=== PATIENT | male | born 1980 | race Caucasian/White ===

== ENCOUNTER 2017-03-11 19:32 | Inpatient (IN) | payer OTHER ==
[~2017-03-11] VITALS: Ht 167.6 cm; Wt 74.0 kg
[2017-03-11] MEDS ORDERED: MELOPOW XX (19:45)
[2017-03-11 21:45] LABS: MEAN CORPUSCULAR HEMOGLOBIN 31.9 pg (27.0-33.0); MEAN CORPUSCULAR HGB CONC 35.7 g/dl (32.0-36.5); MEAN CORPUSCULAR VOLUME 89.4 fl (80.0-96.0); WHITE BLOOD COUNT 11.4 K/mm3 (4.0-10.0)
[2017-03-11 22:05] LABS: METHADONE URINE NEGATIVE (NEGATIVE)
[2017-03-11 22:29] LABS: ALBUMIN 4.1 GM/DL (3.2-5.2); ALBUMIN/GLOBULIN RATIO 1.17 (1.00-1.93); ALKALINE PHOSPHATASE 130 U/L (45-117); ALT/SGPT 22 U/L (12-78); ANION GAP 10 MEQ/L (8-16); AST/SGOT 15 U/L (15-37); BILIRUBIN,DIRECT 0.1 MG/DL (0.0-0.2); BILIRUBIN,TOTAL 0.5 MG/DL (0.2-1.0); BLOOD UREA NITROGEN 10 MG/DL (7-18); CALCIUM LEVEL 8.9 MG/DL (8.5-10.1); CARBON DIOXIDE LEVEL 24 MEQ/L (21-32); CHLORIDE LEVEL 105 MEQ/L (98-107); CREATININE FOR GFR 0.78 MG/DL (0.70-1.30); GLOMERULAR FILTRATION RATE > 60.0 (>60); GLUCOSE, FASTING 89 MG/DL (70-105); POTASSIUM SERUM 3.7 MEQ/L (3.5-5.1); SODIUM LEVEL 139 MEQ/L (136-145); TOTAL PROTEIN 7.6 GM/DL (6.4-8.2)
[2017-03-12] MEDS ORDERED: NICOTINE 21MG/24HR 1 EA TRANSDERMAL TD ONE (00:15)
[2017-03-12] MEDS ORDERED: ACETAMINOPHEN TAB 650MG DOSE (2X325MG) PO PRN (00:30)
[2017-03-12] MEDS ORDERED: MOM 30ML SUSPENSION UDC PO PRN (00:30)
[2017-03-12] MEDS ORDERED: MAALOX 30 ML SUSP *UDC PO PRN (00:30)
[2017-03-12] MEDS ORDERED: MELO15TA4 PO (00:42)
[2017-03-12] MEDS ORDERED: TYLE500T78 PO (00:42)
[2017-03-12 01:28] VITALS: BP 120/86
[2017-03-12] MEDS: NICOTINE 21MG/24HR 1 EA TRANSDERMAL TD SCH (09:44)
[2017-03-12] MEDS: LORazepam 1 MG TAB PO PRN ×2 (09:44→22:09)
[2017-03-12] MEDS: ESCITALOPRAM OXALATE 10 MG TAB (LEXAPRO) PO SCH (09:45)
--- NOTE | 2017-03-12 10:00 | HPEPDOC ---
Medical History and Physical Date of Admission Mar 12, 2017 at 00:23 History and Physical PCP: [facility] ATTENDING: Dr. Odell Dailey HPI: 36yoM admitted to [facility] for Severe MDD, being medically examined today. Patient complaining of low back pain. He states this radiates into his left leg. Sometimes systolics feels weak when he is running or going downstairs. He has numbness and tingling in his left foot with running. Denies bowel or bladder incontinence. He denies prior injury. Denies prior imaging studies. States Myrna is not controlling his pain. He requests to see pain management. Denies any fevers, chills, weakness, fatigue, CONDE, CP, SOB, cough, palpitations, abdominal pain, N/V/D or changes in bowel or bladder habits. PMHx: Chronic low back pain Anxiety Depression PSHX: Septoplasty Reconstructive nasal surgery Lymph node removed neck, benign Vasectomy SOCHX: Resides in: [place], from [place] Marital Status: Kids: 2, 3 stepchildren Employment: Active duty Tobacco use: One pack per day ETOH: Denies Illicit Drugs: Denies IV Drug Use: Denies Tattoos done unprofessionally: 4 FAMHX: Mother: Alive, well Father: Alive, [place], CABG, renal failure status post renal transplant, transplant failure, hemodialysis. Siblings: One sister Alive, well Children: Alive, well Unexpected deaths due to medical reasons: None. ROS: As noted in HPI, otherwise 11pt ROS of systems reviewed and unremarkable. PE: GEN: 36 yo M, appears stated age. Well-nourished, well developed. No acute distress. Alert and oriented x 3. Flat affect, reluctant to answer questions. HEENT: Normocephalic, atraumatic. Pupils are equal, round, and reactive to light. Extraocular movements are intact. No nystagmus appreciated. Sclera are nonicteric. Conjunctiva without injection. Nose midline. Nasal turbinates without bogginess. EACs both patent BL. TMs both visualized and marcano with good cone of light, no bulging or erythema. No facial asymmetry. Moist mucous membranes. Dentition fair. Pharynx pink and moist, no cobblestoning. Neck supple , trachea midline. No lymphadenopathy or thyromegaly appreciated. CHEST: Regular rate and rhythm, +S1, +S2 LUNGS: Clear to auscultation bilaterally. No wheezes, rales, or rhonchi. Breathing appears symmetric and easy. Patient is speaking in full sentences. No accessory muscle use. ABD: Round, soft, non-tender, non-distended. +Bowel sounds throughout. No rebound or guarding. No costovertebral angle tenderness. EXT: Pulses 2+ bilaterally dorsalis pedis and radial. No lower extremity edema appreciated. Mild tenderness with palpation over the lumbar area. No paraspinal muscle tenderness. Normal strength in lower extremities. SKIN: [place], dry, warm. Capillary refill <2sec. No rashes. NEURO: Alert and oriented x 3. Cranial nerves III-XII are intact. No focal deficits appreciated. EKG: Pending. A&P: 36yoM admitted to [facility] for Severe MDD 1. Psych. Plan per Psychiatry. Obtain baseline EKG to assure the safety of psychiatric medications as they can prolong the QT interval. 2. Nicotine dependence. Patch available. 3. Chronic low back pain. Continue Mobic 15 mg daily. Check x-ray of lumbosacral spine. Request pain management opinion. 4. Follow up with PCP on discharge. 5. History of tattoo done unprofessionally. Patient denies HIV/hepatitis screening. Patient states he had screening in early 2016, reports it was negative. Vital Signs Vital Signs Date Time Temp Pulse Resp B/P (MAP) Pulse Ox O2 Delivery O2 Flow Rate FiO2 03/12/17 01:28 98.1 86 16 120/86 (97) 03/12/17 00:59 99 Room Air Laboratory Data Labs 24H Laboratory Tests 2 03/11/17 21:29: Anion Gap 10, Glomerular Filtration Rate > 60.0, Calcium Level 8.9, Aspartate Amino Transf (AST/SGOT) 15, Alanine Aminotransferase (ALT/SGPT) 22, Alkaline Phosphatase 130H, Total Bilirubin 0.5, Direct Bilirubin 0.1, Total Protein 7.6, Albumin 4.1, Albumin/Globulin Ratio 1.17, Thyroid Stimulating Hormone (TSH) 0.500, Salicylates Level 4.9L, Urine Amphetamines Screen NEGATIVE, Urine Benzodiazepines Screen NEGATIVE, Urine Opiates Screen NEGATIVE, Urine Methadone Screen NEGATIVE, Acetaminophen Level < 2.0L, Urine Barbiturates Screen NEGATIVE , Urine Phencyclidine Screen NEGATIVE, Urine Cocaine Metabolite Screen NEGATIVE , Urine Cannabinoids Screen NEGATIVE, Ethyl Alcohol Level < 0.003 CBC/BMP Laboratory Tests 03/11/17 21:29 Red Blood Count 4.61, Mean Corpuscular Volume 89.4, Mean Corpuscular Hemoglobin 31.9, Mean Corpuscular Hemoglobin Concent 35.7, Red Cell Distribution Width 13.0 Home Medications Scheduled Meloxicam (Meloxicam) 15 Mg Tab, 15 MG PO QPM TAKES AT DINNERTIME Scheduled PRN Acetaminophen (Tylenol Extra Strength) 500 Mg Tab, 1,500 MG PO BID PRN for PAIN Allergies Coded Allergies: No Known Allergies (Unverified , 03/11/17) Valorie Lynch Mar 12, 2017 10:00
--- NOTE | 2017-03-12 11:29 | REP ---
LUMBOSACRAL SPINE: Five views of the lumbosacral spine are performed. There is no compression fracture. There is no spondylolysis or spondylolisthesis. There is mild disc space narrowing at L5-S1 with sclerosis at the facets at that level. Posterior elements are intact. IMPRESSION: Mild degenerative changes L5-S1. Signed by Benitez Strange MD 03/12/2017 07:11 P
--- NOTE | 2017-03-12 17:23 | CR ---
DATE OF CONSULTATION: 03/12/2017 REFERRING PROVIDER: ROYCE Parsons CHIEF COMPLAINT: 1. Low back pain. 2. Left leg pain. 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 Reports a one year history of low back pain. Denies precipitating events. Past two weeks he has noticed left leg and foot numbness and burning with running. Today he is having no pain issues. He has not had left leg issues since he has been here. Again, the left leg issues are only with running. Denies recent fever, illness or weight loss. Denies bowel or bladder incontinence. PAST MEDICAL HISTORY: Chronic low back pain, anxiety, depression. PAST SURGICAL HISTORY: Septoplasty. Reconstructive nasal surgery. Lymph node removed neck benign. Vasectomy. SOCIAL HISTORY: Resides in [place]. New to the area times 9 months. Lives with his . Has two children and three step children. Denies alcohol use or illicit drug use. Smokes one pack of cigarettes per day. FAMILY HISTORY: Mother alive, well. Father alive, [place], Coronary artery bypass graft, renal failure status post renal transplant, transplant failure, hemodialysis. Siblings one sister alive and well. Children alive and well. REVIEW OF SYSTEMS: As noted in history of present illness, otherwise 11 point review of systems reviewed and unremarkable. PHYSICAL EXAMINATION: Awake, alert, pleasant, cooperative. Good eye contact. Vital signs: 98.1, 86, 16. Blood pressure 120/86, Oxygen sat is 99% on room air. Cardiac: S1, S2, normal rate and rhythm. Respiratory: Lung sounds are clear. Respirations non labored. Neuromuscular: Muscle strength and tone of the upper and lower extremities 5/5. Inspection of spine: Nontender with palpation. Non-tender specifically over sacroiliac joint region. Negative Akash's testing bilateral lower extremities. Deep tendon reflex 2+/4. Normal sensation to light touch bilateral lower extremities. Range of joint motion of the spine is full. Reports slight increase in pain with extension of the spine. DIAGNOSTIC DATA: X-ray LS spine: This is showing mild degenerative changes L5-S1 with facet arthropathy noted at that level. ASSESSMENT: Low back pain, rule out lumbar radiculopathy. PLAN: I would recommend MRI of the LS spine. Recommend use of Tylenol 500 mg two tablets as needed for reports of severe pain. Recommend trial of ibuprofen 600 mg three times a day. Recommend trial of Juan J Hendrickson to the LS spine and lumbar paraspinal region twice a day. Thank you for allowing us to participate in the care of your patient. Should you have any questions or concerns, please do not hesitate to contact us. cc: Valorie Lynch PA-C
[2017-03-12 18:00] VITALS: BP 124/82
--- NOTE | 2017-03-12 20:57 | ECGEPIP ---
Stationary ECG Study [facility] Test Date: 2017-03-12 Pat Name: SANTI CRUZ Department: Room: [place] [address] Gender: M Fleet Administrative Assistant: ANNY : 1980 Requested By: Valorie Lynch Order Number: [id number] Reading MD: Odell Cook Measurements Intervals [place] Rate: 74 P: 3 VA: 179 QRS: -14 QRSD: 95 T: 16 QT: 390 QTc: 433 Interpretive Statements SINUS RHYTHM No prior ECG available for comparison at the time of interpretation. Electronically Signed On 03-12-2017 20:57:05 EDT by Odell Cook
--- NOTE | 2017-03-12 21:30 | MHHPEPDOC ---
[facility] History & Physical History and Physical DATE OF ADMISSION: Mar 12, 2017 at 00:23 LEGAL STATUS AT ADMISSION: 9.39 CHIEF COMPLAINT: Patient was brought by his RENEE to the ER for having suicidal ideation secondary to marital and legal problems. HISTORY OF THE PRESENT ILLNESS: Patient is a 36-year-old male, who was brought to the Emergency room after a series of events that precipitated a severe depressive reaction and suicidal thoughts. The patient has been watching child pornography and he was investigated by the and [facility] [place] [facility] because they searched all the electronics in his house. Then,when he went back home, he found out from his with whom he had a conversation about this issue end she told him she is not sure if she wants to continue living with him. The patient is facing several legal issues and a possible separation from his . PSYCHIATRIC REVIEW OF SYSTEMS: Affective: Depressed, hopeless, helpless, suicidal ideation. Anxiety: Very high. Trauma: Denies history of childhood abuse/trauma and although he has been deployed to [place], he denies trauma symptoms although one of his peers was killed and this had a big impact on him. Reports his father was not abusive to him but was abusive to his mother and that is why they got . Psychosis: Denies . Personally: Needs further assessment. PAST PSYCHIATRIC HISTORY: Prior Psychiatric Disorder: States that he has felt depressed all his life and that he has taken antidepressants but he stopped taking them because he felt they were not helping him.. Outpatient Treatment: Not recent. Suicidal/Self injurious: Has positive suicidal ideation. Has not attempted suicide before. Psychotropic Medication History: Has taken medication for depression. ALLERGIES: Please see below. FAMILY PSYCHIATRIC HISTORY: Denies. SOCIAL HISTORY: Early Relations/development: He says he grew up with his mother because she split with his father from whom he grew apart.He says he has established contact with his father but he has felt closer to his mother and his mothers family. His mother remarried and he has had a relationship with his stepfather since his childhood but he claims is a difficult relationship because his stepfather was emotionally damaged because he was in [place] and this, has affected his mood and the way he relates to others. Sibling order: One half brother, one sister and two stepbrothers. His sister is full blood, his half brother is from his biological father and his stepmother and his stepbrothers are his stepfathers sons with another person. He is in the middle of the line. Paternal relationships: Mentioned in Early Relations. Please see above. Education: HS Diploma Occupational: Active duty, . Ben Legal: Currently facing legal problems Martial: Facing marital problems secondary to the fact that his has got to know, recently, that he watches child pornography. Has two failed marriages before this one. He got once and the marriage ended because she cheated n him and he cheated on her. The second time, the same thing happened, but this time was with a fianc. He got two children, one with each of these women. His first lost custody of their child and now, this child lives with his ex fiance, who is the mother of his second child. He doesnt have children with current , but she has children, three. Of the three children, two live with them and one doesnt. Economic: Finanacial problems. Supports: His , feels supported by his mother. Abuse/trauma: Denies SUBSTANCE ABUSE HISTORY: He states that after he got form his first and broke up with his fiance, being at [place], [place], he was happy and he used cocaine, alcohol and other drugs, he used to democrat a lot, be around liquor, women and drinking buddies. PAST MEDICAL/SURGICAL HISTORY: 1. H/O Vasectomy 2. H/O Septoplasty 3.H/O Reconstructive Nasal surgery 4. H/O neck lymph node removal (benign) VITAL SIGNS: Stable MENTAL STATUS EXAMINATION: General appearance: Patient is a 36-year old male, who is alert, cooperative, with poor eye contact, dressed in hospital clothes. Looks very sad Speech: Normal. Thought processes: Intact. Thought content: About the legal problems that he is facing, he could end up in snf, being kicked out of the army, could be abandoned by his . Abstract reasoning and computation: Fair Description of associations: Not loose Description of abnormal or psychotic thoughts: Not presents. Judgment: Poor Insight: Poor Orientation: Oriented x 3 Recent and remote memory: Intact Attention span and concentration: Fair Fund of knowledge: Adequate. Mood: "Worried and very depressed" Affect: Depressed, sad DIAGNOSES: 1. Reactive Depression 2. 3. ASSESSMENT: PROBLEM LIST: 1. Depression 2. Suicidal Ideation 3. Anxiety INITIAL TREATMENT PLAN: 1. Patient was admitted on a 9.39 2. Complete history was obtained. 3. With patients permission, family will be contacted and database will be expanded. 4. Patients medication regimen will be reviewed and changed accordingly. 5. Patient will be provided with protected environment. 6. Patient will be treated with individual, group, and milieu therapies. 7. Patient will receive supportive psych-education. 8. Discharge planning will commence immediately. 9. Outpatient follow-up treatment will be strongly recommended. 10. The initial treatment plan will focus initially on: * Depression. * Risk for suicide. * Substance abuse. ESTIMATED LENGTH OF STAY: 7-10 DAYS. TIME SPENT COUNSELING AND COORDINATING INITIAL CARE: 50 minutes. Laboratory Data 24H Labs Laboratory Tests 2 03/11/17 21:29: Anion Gap 10, Glomerular Filtration Rate > 60.0, Calcium Level 8.9, Aspartate Amino Transf (AST/SGOT) 15, Alanine Aminotransferase (ALT/SGPT) 22, Alkaline Phosphatase 130H, Total Bilirubin 0.5, Direct Bilirubin 0.1, Total Protein 7.6, Albumin 4.1, Albumin/Globulin Ratio 1.17, Thyroid Stimulating Hormone (TSH) 0.500, Salicylates Level 4.9L, Urine Amphetamines Screen NEGATIVE, Urine Benzodiazepines Screen NEGATIVE, Urine Opiates Screen NEGATIVE, Urine Methadone Screen NEGATIVE, Acetaminophen Level < 2.0L, Urine Barbiturates Screen NEGATIVE , Urine Phencyclidine Screen NEGATIVE, Urine Cocaine Metabolite Screen NEGATIVE , Urine Cannabinoids Screen NEGATIVE, Ethyl Alcohol Level < 0.003 CBC/BMP Laboratory Tests 03/11/17 21:29 Red Blood Count 4.61, Mean Corpuscular Volume 89.4, Mean Corpuscular Hemoglobin 31.9, Mean Corpuscular Hemoglobin Concent 35.7, Red Cell Distribution Width 13.0 Medications Scheduled Meloxicam (Meloxicam) 15 Mg Tab, 15 MG PO QPM, (Reported) TAKES AT DINNERTIME Scheduled PRN Acetaminophen (Tylenol Extra Strength) 500 Mg Tab, 1,500 MG PO BID PRN for PAIN, (Reported) Allergies Coded Allergies: No Known Allergies (Unverified , 03/11/17) MARIETTA GOLDBERG MD Mar 12, 2017 21:30
[2017-03-12] MEDS: MELOXICAM (MOBIC) 7.5 MG TAB PO SCH (22:09)
[2017-03-12] MEDS: traZODone 50 MG TAB PO PRN (22:09)
[2017-03-13 06:00] VITALS: BP 138/78
[2017-03-13] MEDS: ESCITALOPRAM OXALATE 10 MG TAB (LEXAPRO) PO SCH (08:56)
[2017-03-13] MEDS: NICOTINE 21MG/24HR 1 EA TRANSDERMAL TD SCH (08:56)
[2017-03-13] MEDS: ANALGESIC BALM CRM 120 GM TOP SCH ×2 (09:37→21:00)
--- NOTE | 2017-03-13 10:04 | REP ---
MR LUMBAR SPINE WITHOUT CONTRAST: HISTORY: Back pain. Decreased signal intensity on T2-weighted images is present in the L4-5 and L5-S1 intervertebral discs. The discs are decreased in height. These findings are consistent with disc degeneration. There is no disc bulge or herniation at the L1-2 level. The L1 nerves exit the neural foramina without compression. A diffuse disc bulge is present at the L2-3 level. There is minimal compression of the thecal sac. The L2 nerves exit the neural foramina without compression. A diffuse disc bulge is present at the L3-4 level. There is minimal compression of the thecal sac. The L3 nerves exit the neural foramina without compression. A diffuse disc bulge is present at the L4-5 level. There is mild compression of the thecal sac. There is hypertrophy of the posterior articulating facets. The L4 nerves exit the neural foramina without compression. A diffuse disc bulge and small right paracentral and intraforaminal disc protrusion are present at the L5-L1 level. There is minimal compression of the thecal sac and right S1 nerve as it exits the thecal sac. The left S1 nerve is normal. There is compression of the left L5 nerve in the neural foramen. The right L5 nerve exits the neural foramen without compression. The conus medullaris is normal in appearance terminating at the level of the L1-2 intervertebral disc . Normal signal intensity is present in the lumbar vertebral bodies. IMPRESSION: 1. Diffuse disc bulges at the L2-3 and L3-4 levels with minimal thecal sac compression. 2. Diffuse disc bulge at the L4-5 level with mild thecal sac compression. 3. Diffuse disc bulge and small right paracentral and intraforaminal disc protrusion at the L5-S1 level with minimal compression of the thecal sac and right S1 nerve as it exits the thecal sac. There is compression of the left L5 nerve in the neural foramen. Signed by Giovani Parada MD 03/13/2017 10:14 A
[2017-03-13] MEDS: LORazepam 1 MG TAB PO PRN (14:21)
[2017-03-13 18:00] VITALS: BP 127/76
[2017-03-13] MEDS: MELOXICAM (MOBIC) 7.5 MG TAB PO SCH (21:42)
[2017-03-13] MEDS: traZODone 50 MG TAB PO PRN (21:42)
--- NOTE | 2017-03-13 22:04 | IPN ---
DATE: 03/13/2017 Evaluated a 36-year-old male who was admitted to the inpatient mental health unit due to the fact that he had suicidal ideation and an extreme reactive depression because he is about to lose everything that he has achieved in his life, his career, his marriage and he is facing possible charges and possible imprisonment due to the fact that it was found out that he watched child cpornography. He was kept at the [facility] for three days while they searched at his house and they took all the electronics to investigate him. When he got out of the [employer], he found out, when he spoke to his , who already knew what was going on, and his told him that she is not sure if she wants to keep on going and sharing her life with him due to all these events. The patient was initiated on Lexapro 20 mg by mouth daily yesterday, and Ativan 1 mg by mouth every eight hours as needed and 1 mg three times a day as needed for anxiety or agitation. The patient was evaluated today, and he was seen less anxious, slightly less depressed than yesterday but he continues to be depressed, hopeless, helpless, with feelings of worthlessness and guilt-remorse. The patient's speech is normal , is not circumstantial and not tangential. His thought process is intact. His thought content is redundant around financial problems that he has had all his life, how difficult it is to support a family with only 5000 dollars because he has to pay child support for his two other children who live in [place] with his ex-fiance, about the current events, about the possibility of losing his entire life, his career, his marriage, his family support and respect, and the [place] [facility] [place] [facility] because of [facility]. Abnormal thoughts or psychotic thoughts: He denies suicidal ideation, denied homicidal ideation, denied auditory or visual hallucinations, denied obsessions, compulsions, but admitted to having watched child pornography for approximately one year, although he denied having had sexual relationships with a child and denied forcing a child to have sex with him. His memory recent and remote is intact, his attention and concentration are fair. His insight, judgment, impulse control are very poor. The patient did not foresee the consequences of his acts, he says that he really did not consider all what could happen to him if somebody discovered that he was watching child pornography, which just shows that his frontal lobe has not been working really well in controlling his impulses. The patient has high anxiety levels and he stated that he does not know whats going to happen with his life. He is not sure if he will commit suicide once he is out of the unit and on his own. He consider his life would not be worth living if he loses everything, the most ilya thing, his family. The patient will be started on lithium. This is the only medication that prevents suicide and at this point, the patient is at extremely high risk for suicide and he will need to be monitored very closely but the likelihood of a suicide continues to be very high even on medications, because as he has stated, he had lost everything he had. Will followup. IVANNA
[2017-03-14 06:03] VITALS: BP 125/73
[2017-03-14] MEDS: ANALGESIC BALM CRM 120 GM TOP SCH ×2 (09:00→20:59)
[2017-03-14] MEDS: NICOTINE 21MG/24HR 1 EA TRANSDERMAL TD SCH (09:22)
[2017-03-14] MEDS: ESCITALOPRAM OXALATE 10 MG TAB (LEXAPRO) PO SCH (09:23)
[2017-03-14 18:01] VITALS: BP 115/74
[2017-03-14] MEDS: MELOXICAM (MOBIC) 7.5 MG TAB PO SCH (20:59)
[2017-03-14] MEDS: LITHIUM CARBONATE 300 MG CAP PO SCH (20:59)
[2017-03-14] MEDS: LORazepam 1 MG TAB PO PRN (20:59)
--- NOTE | 2017-03-15 01:48 | IPN ---
DATE OF SERVICE: 03/14/2017 The patient states that he is still feeling pretty depressed. He says his mood is 7/10 with the closer to 10 as the most depressed. He says he is still having some fleeting suicidal ideations, but he is able to contract for safety. He did sleep well with the trazodone. MENTAL STATUS EXAMINATION: This patient is alert and oriented times three, pleasant and cooperative, verbally spontaneous. Psychomotor activity is decreased. No formal thought disorder noted. Mood is depressed. Affect is full range and appropriate. He is not psychotic. He is still having fleeting suicidal thoughts. He is not homicidal. Concentration is fair. Memory intact. Insight and judgment poor. DIAGNOSIS: Adjustment disorder with depressed mood. TREATMENT PLAN: We will continue to monitor the patient for continued elevation of mood and continued resolution of suicidal ideations.
[2017-03-15 06:37] VITALS: BP 138/76
[2017-03-15] MEDS: ANALGESIC BALM CRM 120 GM TOP SCH ×2 (08:13→21:00)
[2017-03-15] MEDS: ESCITALOPRAM OXALATE 10 MG TAB (LEXAPRO) PO SCH (08:15)
[2017-03-15] MEDS: NICOTINE 21MG/24HR 1 EA TRANSDERMAL TD SCH (08:15)
[2017-03-15] MEDS: LORazepam 1 MG TAB PO PRN (13:30)
[2017-03-15 18:00] VITALS: BP 138/89
[2017-03-15] MEDS: MELOXICAM (MOBIC) 7.5 MG TAB PO SCH (21:07)
[2017-03-15] MEDS: LITHIUM CARBONATE 300 MG CAP PO SCH (21:07)
[2017-03-15] MEDS: traZODone 100 MG TAB PO PRN (21:07)
[2017-03-16 06:42] VITALS: BP 153/80
[2017-03-16] MEDS: NICOTINE 21MG/24HR 1 EA TRANSDERMAL TD SCH (08:59)
[2017-03-16] MEDS: ESCITALOPRAM OXALATE 10 MG TAB (LEXAPRO) PO SCH (08:59)
[2017-03-16] MEDS: ANALGESIC BALM CRM 120 GM TOP SCH ×2 (09:00→20:27)
[2017-03-16 18:00] VITALS: BP 153/94
[2017-03-16] MEDS: traZODone 100 MG TAB PO PRN (20:29)
[2017-03-16] MEDS: LITHIUM CARBONATE 300 MG CAP PO SCH (20:29)
[2017-03-16] MEDS: MELOXICAM (MOBIC) 7.5 MG TAB PO SCH (20:29)
--- NOTE | 2017-03-16 21:08 | IPN ---
DATE: 03/16/2017 Evaluated 37-year-old male who states that he is feeling better today, less depressed and less anxious because he received a visit from his during the weekend and they were able to talk about their problems. He stated that she told him that she is not going to abandon him at this time and this has helped him because now he feels relieved. MENTAL STATUS EXAMINATION: The patient is alert and oriented times three, dressed in hospital clothes, with good eye contact, pleasant and cooperative. His psychomotor activity is normal. No formal thought disorder was noted. His mood is depressed, His affect is full range and appropriate. He is not psychotic. He states that he has had suicidal thoughts, but that they have decreased in intensity and in frequency; however, he states that his level of anxiety is still very high. His attention and concentration are fair. His memory, recent and remote, are intact and his insight and judgment are poor. DIAGNOSIS: Adjustment disorder with depressed mood. TREATMENT PLAN: Will continue to monitor the patient, will adjust medications if needed, and will continue to provide him with supportive psychotherapy, encouraging him to attend groups and observe closely for suicidal ideations. Discussed with him as of why he was started on lithium, because it is the medication that protects people from harming themselves. He was agreeable to treatment and he stated that he agrees to have his blood drawn this Thursday to monitor his serum lithium levels. Will follow up. IVANNA
--- NOTE | 2017-03-16 21:28 | IPN ---
DATE OF SERVICE: 03/15/2017 The patient today states "I am having initial insomnia," and he did request and was given another dose of Ativan last night. He says that he did not take the trazodone because he was told not to take both of them together. I have advised him to take the trazodone first tonight. He says his mood is about a 4/10 with the closer to 10 as the most depressed and so he is having still some depression and he is denying suicidal ideation. MENTAL STATUS EXAMINATION: This patient is alert and oriented times three. He is pleasant and cooperative and verbally spontaneous. There is no formal thought disorder noted. Mood is depressed. Affect is full range and appropriate. He is not psychotic, suicidal, homicidal. Concentration is fair. Memory intact. Insight and judgment is fair. DIAGNOSIS: Adjustment disorder with depressed mood. TREATMENT PLAN: At this point, will further observe and evaluate this patient for continued resolution of suicidal ideations and continued stabilization of his mood.
[2017-03-17 06:30] VITALS: BP 128/66
[2017-03-17] MEDS: ANALGESIC BALM CRM 120 GM TOP SCH ×2 (08:30→21:00)
[2017-03-17] MEDS: NICOTINE 21MG/24HR 1 EA TRANSDERMAL TD SCH (08:32)
[2017-03-17] MEDS: ESCITALOPRAM OXALATE 10 MG TAB (LEXAPRO) PO SCH (08:32)
[2017-03-17 18:00] VITALS: BP 168/90
[2017-03-17] MEDS: traZODone 100 MG TAB PO PRN (21:17)
[2017-03-17] MEDS: MELOXICAM (MOBIC) 7.5 MG TAB PO SCH (21:17)
[2017-03-17] MEDS: LITHIUM CARBONATE 300 MG CAP PO SCH (21:17)
--- NOTE | 2017-03-17 22:39 | IPN ---
DATE: 03/17/2017 Evaluated 37-year-old male who was admitted because he was extremely depressed, developed suicidal ideation after he learned that his was upset with him after she got to know that he had been watching child pornography. The patient had been staying at the [facility] at [place] and he ignored that his house had been searched and all the electronics had been taken away and he is under investigation for watching child pornography. It was his , the one who told him about these problems and she told him that she was not sure if she wanted to go back with him. The patient has reported an improvement in his symptoms of depression and anxiety over the last few days. He has shown a good response to medication. MENTAL STATUS EXAMINATION: The patient was alert, oriented times three, cooperative with interview, with good eye contact and good hygiene. His speech was normal. His thought process was intact. His thought content is goal-directed and he has plans for the future. He denies auditory or visual hallucinations. Denies delusions thoughts and denies active suicidal ideation, although he admits that yesterday he had fleeting suicidal thoughts, but not today. He denies homicidal ideation. His attention and concentration are fair. His recent and remote memory are intact. His fund of knowledge is adequate. He is oriented times three. His language is normal. His judgment and insight are still poor. His impulse control is fair. MANAGEMENT PLAN: Will continue on the same medications, which are: - Lexapro 20 mg by mouth daily - lithium carbonate 300 mg by mouth at bedtime - Ativan 1 mg by mouth twice a day as needed for anxiety - trazodone 100 mg by mouth at bedtime as needed for insomnia The patient also has a nicotine patch of 21 mg to be delivered in 24 hours. Tomorrow, a lithium level will be ordered to monitor and adjust lithium carbonate if needed. Will continue to observe him closely, in order to assess mood changes or possible reappearance of suicidality. The patient is very vulnerable because he is facing major problems, legal, in his life and he also has severe financial problems. Will follow up.
[2017-03-18 05:56] VITALS: BP 138/72
[2017-03-18] MEDS: ANALGESIC BALM CRM 120 GM TOP SCH ×2 (08:10→21:00)
[2017-03-18] MEDS: NICOTINE 21MG/24HR 1 EA TRANSDERMAL TD SCH (08:11)
[2017-03-18] MEDS: ESCITALOPRAM OXALATE 10 MG TAB (LEXAPRO) PO SCH (08:12)
[2017-03-18] MEDS ORDERED: MELO7.5T6 PO (12:46)
[2017-03-18] MEDS ORDERED: LITH300C PO (12:46)
[2017-03-18] MEDS ORDERED: TRAZ10TA PO (12:46)
[2017-03-18] MEDS ORDERED: ESCI10TA2 PO (12:46)
--- NOTE | 2017-03-18 13:17 | MHIPNPDOC ---
[facility] Progress Note Progress Note DATE OF SERVICE: 03/18/17 INTERVAL HISTORY: Medication Side effects: Denies medication side effects but he says he feels less anxious and less depressed with the medication. Behavior: Has been attending groups, has been compliant with medications, has shown a respectful attitude towards staff and peers, has interacted with staff members and peers Group Attendance: Has attended groups Psychiatric Symptom change: He is perceived less anxious and less depressed, he denies current suicidal ideation but he states that it comes and goes and that he has been trying to block them. VITAL SIGNS: See below. NEW TEST RESULTS: See below CURRENT MEDICATIONS: See below. MENTAL STATUS EXAMINATION: General: Alert, cooperative, pleasant, with fair eye contact and good hygiene Speech: Normal Thought processes: Intact Thought content: Goal oriented. Abstract reasoning, and computation: Fair Description of associations: Not loose Description of abnormal or psychotic thoughts: He is not endorsing delusional thoughts and he denies auditory or visual hallucinations. Denies homicidal ideation and denies suicidal ideation at the time of this evaluation, but he says he didn't have suicidal thoughts yesterday either. Judgment: Improved Insight: Improved Orientation: Oriented 3 Recent and remote memory: Intact Attention span and concentration: Fair Fund of knowledge: Adequate Mood: "I'm trying my best to be hopeful, but I'm worried" Affect: Sad DIAGNOSES: 1. Adjustment disorder with depressed mood, severe. 2. Generalized anxiety disorder. . ASSESSMENT: Patient has improved because he has been compliant with medications and because he has received his 's visits and he has felt her support. His lithium levels were low, 0.25 and for that reason we will increase lithium to 300 mg by mouth twice a day. The patient is on lithium because is the medication that has proved to protect people from committing suicide and he should continue taking this medication. He should continue on Lexapro 20 mg by mouth daily for depression and anxiety and trazodone 100 mg by mouth daily at bedtime for insomnia. The patient is still at risk for suicide even when he is denying suicidal ideation at this time. He is at high risk because he is facing legal problems and financial problems. The legal problems that he is facing at this time could take him to intermediate but probably he will also be requested to leave the [employer]. Basically, he has lost mostly in his life and for that reason he should be supervised closely. 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 He will be followed up at the behavioral clinic at [place] if he is discharged tomorrow as it has been planned. The patient is not suicidal at this time and has denied suicidal ideation since yesterday. MANAGEMENT PLAN: Medications: Lexapro 20 mg by mouth daily for depression and anxiety, trazodone 100 mg by mouth daily at bedtime for insomnia, lithium 300 mg by mouth twice a day for mood stabilization/suicide prevention. Psychotherapy: Has been attending groups and participating in them Social: Has interacted with staff and peers. Misc: -- Disposition: If patient continues to deny suicidal thoughts he will be discharged tomorrow and he will be able to go home with his but previously he will meet with [employer] and social security assessor. If he is discharged he will follow-up at the behavioral clinic at [place]. TIME SPENT: 30 minutes. Vital Signs Vital Signs Date Time Temp Pulse Resp B/P (MAP) Pulse Ox O2 Delivery O2 Flow Rate FiO2 03/18/17 05:56 98.1 63 20 138/72 (94) 03/12/17 00:59 99 Room Air Laboratory Data 24H Labs Laboratory Tests 2 03/18/17 10:21: Cassel Level 0.25L Current Medications Current Medications Acetaminophen (Tylenol Tab) 650 mg Q6HP PRN PO HEADACHE or DISCOMFORT Last administered on 03/12/17 07:13; Start 03/12/17 at 00:30; Stop 04/11/17 at 00:29 Al Hydrox/Mg Hydrox/Simethicone (Mylanta) 30 ml Q4HP PRN PO HEARTBURN/ INDIGESTION; Start 03/12/17 at 00:30; Stop 04/11/17 at 00:29 Escitalopram Oxalate (Lexapro) 20 mg DAILY PO Last administered on 03/18/17 08: 12; Start 03/12/17 at 09:00; Stop 04/11/17 at 08:59 Home Med (Med Rec Complete!) ASDIRECTED XX ; Start 03/12/17 at 00:45; Stop at 00:48; Status DC Cassel Carbonate (Cassel Carbonate) 300 mg BID PO ; Start 03/18/17 at 21:00; Stop 04/13/17 at 20:59 Cassel Carbonate (Cassel Carbonate) 300 mg QHS PO Last administered on 21:17; Start 03/14/17 at 21:00; Stop 03/18/17 at 12:06; Status DC Lorazepam (Ativan) 1 mg BIDP PRN PO ANXIETY Last administered on 03/15/17 13:30 ; Start 03/12/17 at 00:30; Stop 03/19/17 at 00:29 Magnesium Hydroxide (Milk Of Magnesia) 30 ml DAILYPRN PRN PO CONSTIPATION; Start 03/12/17 at 00:30; Stop 04/11/17 at 00:29 Meloxicam (Mobic) 15 mg QPM PO Last administered on 03/17/17 21:17; Start at 21:00; Stop 04/11/17 at 20:59 Menthol/Methyl Salicylate (Bengay Cream) low back BID TOP Last administered on 03/13/17 09:37; Start 03/13/17 at 09:00; Stop 04/12/17 at 08:59 Nicotine (Nicoderm Cq 21mg) 1 patch DAILY TD Last administered on 03/18/17 08: 11; Start 03/12/17 at 09:00; Stop 04/11/17 at 08:59 Trazodone HCl (Desyrel) 50 mg QHSP PRN PO INSOMNIA Last administered on 21:42; Start 03/12/17 at 00:30; Stop 03/14/17 at 18:17; Status DC Trazodone HCl (Desyrel) 100 mg QHSP PRN PO INSOMNIA Last administered on 21:17; Start 03/14/17 at 18:30; Stop 04/13/17 at 18:29 Allergies Coded Allergies: No Known Allergies (Unverified , 03/11/17) MARIETTA GOLDBERG MD Mar 18, 2017 13:17
[2017-03-18 18:00] VITALS: BP 139/85
[2017-03-18] MEDS: MELOXICAM (MOBIC) 7.5 MG TAB PO SCH (21:33)
[2017-03-18] MEDS: LITHIUM CARBONATE 300 MG CAP PO SCH (21:33)
[2017-03-19 06:23] VITALS: BP 126/62
[2017-03-19 06:25] VITALS: BP 146/81
[2017-03-19] MEDS: ANALGESIC BALM CRM 120 GM TOP SCH (08:08)
[2017-03-19] MEDS: NICOTINE 21MG/24HR 1 EA TRANSDERMAL TD SCH (08:08)
[2017-03-19] MEDS: LITHIUM CARBONATE 300 MG CAP PO SCH (08:09)
[2017-03-19] MEDS: ESCITALOPRAM OXALATE 10 MG TAB (LEXAPRO) PO SCH (08:09)
--- NOTE | 2017-03-19 10:26 | MHDSPDOC ---
[facility] Discharge Summary Discharge Summary DATE OF ADMISSION: Mar 12, 2017 at 00:23 DATE OF DISCHARGE: DISCHARGE DIAGNOSES: 1. . 2. . REASON FOR ADMISSION: Pt. was brought to the Emergency Room after he was heard making suicidal statements (passive) after he spoke with his and found out his house had been searched and his electronics were taken away because he had been watching child pornography. She told him she was not sure if she wanted to continue living with him and this triggered the depression and suicidal ideation. He is facing legal problems, possible imprisonment, possible discharge from the and financial problems. CONSULTANTS INVOLVED: None. TREATMENT AND PROGRESS ON THE UNIT : Patient has been treated with Lexapro 20 mgs. PO QD, Trazodone 100 mgs. Po QHS, Ativan 1 mg. PO BID PRN for anxiety/ agitation and Bingham 300 mgs. twice a day. He has had a good response to medication but he also has been motivated to get better and has been attending groups. His came to visit over the weekend and they were able to talk about his problem and the impact it's having on their marriage. she told him she wouldn't abandon him and this has relieved a little. His level of anxiety is still very high because he is uncertain as of what may happen to him regarding his legal problem. 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 He is still depressed, but less hopeless and more hopeful. he has become stronger at the [facility] through therapy and attending groups. He is taking Bingham because it is the only medication that has proven to protect people from committing suicide and he is at high risk for suicide, even after his manifested him her support. He is about to loose everything that he has worked for in life and that puts him at an extremely high risk for suicide. he will follow up at the [facility] at [place]. He had an MRI of his back done and it was found that he has a nerve compression between L5 and the sacrum. He is receiving meloxicam for his back pain. HOSPITAL COURSE: As above DISCHARGE ASSESSMENT: Pt is stable, but he is still depressed. He has denied suicidal ideation for two days but he will need to be under close observation and followed up by therapist at [place]. At the time of discharge he doesn't endorse suicidal ideation, homicidal ideation or psychosis. He will need to continue his current medications and to prevent him hurting himself. His RENEE and his are aware of the potential risks. MENTAL STATUS EXAMINATION ON DISCHARGE: Patient is a 37-year old male, who is alert, cooperative, with pleasant attitude and good eye contact.. Speech is normal. Language skills are fair Thought processes including: Intact. Rational. Thought content: Has thoughts about the possible outcome of his legal situation , worries about this. Abstract reasoning, and computation: Fair Description of associations: Not loose. Description of abnormal or psychotic thoughts: Denies suicidal ideation, denies homicidal ideation, denies delusional thoughts and denies auditory and visual hallucinations. Judgment: Improved. Insight: Improved. Orientation to oriented 3. Recent and remote memory: Intact. Attention span and concentration: Fair. Language: Normal, fluent. Fund of knowledge: Adequate. Mood: "I have hope but I'm anxious". Affect: Full range and appropriate, mood congruent. MEDICATIONS ON DISCHARGE: -Lexapro 20 mg by mouth every for depression. -Bingham carbonate 300 mg by mouth twice a day for for mood stabilization and suicide prevention. -Trazodone 100 mg by mouth daily at bedtime for insomnia -Meloxicam 15 mg by mouth daily for back pain. PLAN/FOLLOWUP ARRANGEMENTS: Patient will follow-up at behavioral health clinic at [place]. The amount of time spent in the coordination of care for this patient was approximately 40 minutes. Vital Signs/I&Os Vital Signs Date Time Temp Pulse Resp B/P (MAP) Pulse Ox O2 Delivery O2 Flow Rate FiO2 03/19/17 06:25 98.2 66 16 146/81 (102) Laboratory Data Labs 24H Laboratory Tests 2 03/18/17 10:21: Bingham Level 0.25L Medications Scheduled Escitalopram Oxalate (Escitalopram Oxalate) 10 Mg Tab, 20 MG PO DAILY for Depression, #14 Bingham Carbonate (Bingham Carbonate) 300 Mg Cap, 300 MG PO BID for MOOD, #14 Meloxicam (Meloxicam) 7.5 Mg Tab, 15 MG PO QPM for pain, #14 Scheduled PRN Trazodone HCl (Trazodone HCl) 100 Mg Tab, 100 MG PO QHSP PRN for INSOMNIA, #7 Allergies Coded Allergies: No Known Allergies (Unverified , 03/11/17) MARIETTA GOLDBERG MD Mar 19, 2017 10:26
== END 2017-03-19 12:00 | disposition home or self-care (01) | DRG 881 ==
LOC: M ED 20:37 → M ED INP 03-12 00:23 → M PSY 03-12 01:23
PROVIDERS: ADMIT Psychiatry & Neurology Psychiatry; ATTEND Psychiatry & Neurology Psychiatry
DX: F43.21 Adjustment disorder with depressed mood (principal); R45.851 Suicidal ideations; F41.1 Generalized anxiety disorder; G47.00 Insomnia, unspecified; F17.210 Nicotine dependence, cigarettes, uncomplicated; M54.5 Low back pain; Z98.52 Vasectomy status; Z82.49 Family history of ischemic heart disease and other diseases of the circulatory system; Z84.1 Family history of disorders of kidney and ureter; Z79.899 Other long term (current) drug therapy